=== PATIENT | female | born 1945 | race Caucasian/White ===

== ENCOUNTER 2016-08-18 21:21 | Emergency (ER) | payer MEDICAID ==
[~2016-08-18] VITALS: Ht 154.9 cm; Wt 59.0 kg
--- NOTE | 2016-08-18 21:30 | NUR ---
Patient brought in by daughter "for not feeling good." Patient upon arrival hyperventalating,c/o abdominal pain 07/15. Denies CP,SOB,N/V
[2016-08-18] MEDS ORDERED: ALPRAZOLAM 0.25 MG TABLET PO ONE (21:45)
--- NOTE | 2016-08-18 21:45 | NUR ---
According to patient and daughter patient ran out of xanax medication and has not taken it for [address] Green aware
[2016-08-18] MEDS ORDERED: ALPR0.5T PO (21:51)
[2016-08-18] MEDS ORDERED: SIMV10TA6 PO (21:51)
[2016-08-18] MEDS ORDERED: TRIA1CAP19 (21:51)
[2016-08-18] MEDS ORDERED: ALPRAZOLAM 0.5 MG TABLET ONE (21:51)
[2016-08-18] MEDS ORDERED: LOSA50TA21 PO (21:51)
[2016-08-18 22:00] LABS: BASOPHILS % (AUTO) 0.6 % (0.0-2.0); EOSINOPHILS # (AUTO) 0.1 K/uL (0.0-0.7); EOSINOPHILS % (AUTO) 1.6 % (0.0-7.0); HEMATOCRIT 36.9 % (37-47); HEMOGLOBIN 12.6 G/DL (12.0-16.0); LYMPHOCYTES # (AUTO) 2.7 K/UL (0.8-4.8); LYMPHOCYTES % (AUTO) 33.1 % (20.5-51.5); MEAN CORPUSCULAR HEMOGLOBIN 28.1 UUG (27.0-31.0); MEAN CORPUSCULAR HGB CONC 34 g/dL (32.0-37.0); MEAN CORPUSCULAR VOLUME 82.4 FL (81.0-99.0); MONOCYTES # (AUTO) 0.6 K/UL (0.1-1.30); MONOCYTES % (AUTO) 7.3 % (0.0-11.0); NEUTROPHILS # (AUTO) 4.8 K/UL (1.8-8.9); NEUTROPHILS % (AUTO) 57.4 % (38.5-71.5); PLATELET COUNT (AUTO) 223 K/UL (150-450); RED BLOOD CELL COUNT(AUTO) 4.48 MIL/UL (4.2-5.4); RED CELL DISTRIBUTION WIDTH 11.7 % (11.5-14.5); WHITE BLOOD COUNT (AUTO) 8.3 K/UL (4.0-11.2)
--- NOTE | 2016-08-18 22:00 | NUR ---
Patient in bed with no distress noted. Patient breathing in normal rate (18 BPM). States "I feel better now."
[2016-08-18 22:07] LABS: *BILIRUBIN,URIN NEGATIVE (NEGATIVE); *BLOOD, URINE 2+ (NEGATIVE); *COLOR,URINE YELLOW (YELLOW); *KETONES,URINE NEGATIVE (NEGATIVE); *PROTEIN,URINE NEGATIVE (NEGATIVE); *UROBILINOGEN,URINE 0.2 E.U./dl (NORMAL); LEUKOCYTE ESTERASE ,URINE 1+ (NEGATIVE); NITRITE, URINE NEGATIVE (NEGATIVE); UGLUCOSE NEGATIVE (NEGATIVE)
[2016-08-18 22:08] LABS: CALCIUM 9.7 mg/dL (8.5-10.1); CREATININE 1.2 mg/dL (0.6-1.3); POTASSIUM 4.6 mmol/L (3.5-5.1)
[2016-08-18 22:13] LABS: *CLARITY,URINE SLIGHTLY HAZY (CLEAR)
[2016-08-18 22:14] LABS: ALBUMIN 3.9 g/dL (3.4-5.0); BILIRUBIN,DIRECT 0.1 mg/dL (0.0-0.2); BILIRUBIN,TOTAL 0.5 mg/dL (0.2-1.0); TOTAL PROTEIN, SERUM 8.4 g/dL (6.4-8.2)
[2016-08-18 22:16] LABS: SQUAMOUS EPITHELIAL CELL,UR FEW /HPF (NONE SEEN)
[2016-08-18 22:17] LABS: BACTERIA,URINE RARE /HPF (NONE SEEN)
[2016-08-18 22:30] VITALS: BP 135/75
--- NOTE | 2016-08-18 22:31 | NUR ---
Patient discharged to home in stable conditon with daughter taking Pateint home. Written and verbal after care instructions given. Patient verbalizes understanding of instructions. Walked out of ER with steady gait with no distress noted
== END 2016-08-18 22:32 | disposition home or self-care (01) ==
LOC: ER 21:25
DX: F41.0 Panic disorder [episodic paroxysmal anxiety] (principal); I10 Essential (primary) hypertension; E78.5 Hyperlipidemia, unspecified; Z79.82 Long term (current) use of aspirin
CPT/HCPCS: 36415; 70030-TC; 83690; 85025; 93005; A4663